=== PATIENT | male | born 1985 | race American Indian/Alaskan Native ===

== ENCOUNTER 2016-09-24 20:23 | Emergency (ER) | payer OTHER, BC ==
[2016-09-24] MEDS ORDERED: TORADOL IM ONE (22:03)
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
[2016-09-24 22:47] VITALS: BP 112/60
== END 2016-09-24 22:49 ==
LOC: ED 20:23
DX: M54.2 Cervicalgia (principal); V89.2XXA Person injured in unspecified motor-vehicle accident, traffic, initial encounter; Y93.89 Activity, other specified; Y99.8 Other external cause status; Y92.89 Other specified places as the place of occurrence of the external cause
CPT/HCPCS: 96372; 99282; J1885